=== PATIENT | male | born 1970 | race Caucasian/White ===

== ENCOUNTER 2016-04-23 15:38 | Emergency (ER) | payer OTHER ==
[2016-04-23 15:45] VITALS: BP 145/90; PULSE 68; TEMP 97.9; BMI 27.3
[2016-04-23] MEDS ORDERED: KETOROLAC TROMETHAMINE 60 MG/2 ML VIAL IM ONE (16:40)
[2016-04-23] MEDS ORDERED: diazePAM 5 MG TABLET PO ONE (16:40)
[2016-04-23] MEDS ORDERED: diazePAM 5 MG TABLET ONE (16:43)
[2016-04-23] MEDS ORDERED: KETOROLAC TROMETHAMINE 60 MG/2 ML VIAL ONE (16:43)
--- NOTE | 2016-04-23 16:47 | PDOC ---
History of Present Illness - General Chief Complaint: Back Pain Stated Complaint: LOWER BACK PAIN, LT LEG NUMBNESS Time Seen by Provider: 04/23/16 16:22 History Source: Patient Exam Limitations: No Limitations - History of Present Illness Initial Comments: 04/23/16 16:45 Chief complaint: Left-sided lower back pain with tingling of the left leg since yesterday History of present illness: Patient is a 46-year-old male with a history of hypertension and 2 previous episodes of lower back pain here today due to sudden onset of back pain after he jumped off a pull-up bar yesterday at the gym. Patient reports that he felt pain immediately and was unable to stand up or rectally. Patient reports that the pain does not radiate down his left leg but he feels tingling down his left leg to his foot. Patient reports that he went to see an wallpaper hanger that he had seen in the past when he had back pain yesterday however it did not help. Patient reports that he applied heat to his left lower back and when he turned last night in bed felt worse back pain and left sided lumbar area. Patient currently is unable to stand up or rectally is leaning towards the left. Patient denies any incontinency or any saddle anesthesia. Occurred: reports: yesterday (left lower back pain ) Severity: reports: severe (left lower back pain ) Pain Location: reports: back (left lower back paim ) Method of Injury: Yes: other (jump off pull up bar yesterday ) Modifying Factors: improves with: None Loss of Consciousness: no loss of consciousness Associated Symptoms (Fall): muscle spasms (left lower back and tingling of left leg ), trouble walking, other (difficulty standing up straight at waist ) Past History - Past Medical History Allergies/Adverse Reactions: Allergies Allergy/AdvReac Type Severity Reaction Status Date / Time No Known Allergies Allergy Verified 04/23/16 15:45 Home Medications: Ambulatory Orders Cyclobenzaprine HCl [Flexeril -] 10 mg PO Q8H PRN #21 tablet 04/23/16 Diazepam [Valium] 5 mg PO Q8H PRN #2 tablet MDD 2 04/23/16 HTN: Yes - Psycho/Social/Smoking Cessation Hx Suicidal Ideation: No Smoking History: Never smoked Information on smoking cessation initiated: No Hx Alcohol Use: No Drug/Substance Use Hx: No Substance Use Type: None Review of Systems - Review of Systems Able to Perform ROS?: Yes Constitutional: No: Symptoms Reported HEENTM: No: Symptoms Reported Respiratory: No: Symptoms reported Cardiac (ROS): No: Symptoms Reported ABD/GI: No: Symptoms Reported : No: Symptoms Reported Musculoskeletal: Yes: Back Pain (left sided lower back pain with muscle spasm ) Integumentary: No: Symptoms Reported Neurological: Yes: Tingling (left leg to foot ) *Physical Exam - Vital Signs Last Vital Signs Temp Pulse Resp BP Pulse Ox 97.9 F 68 18 145/90 98 04/23/16 15:43 04/23/16 15:43 04/23/16 15:43 04/23/16 15:43 04/23/16 15:43 - Physical Exam General Appearance: Yes: Appropriately Dressed Respiratory/Chest: positive: Lungs Clear, Normal Breath Sounds. negative: Chest Tender, Respiratory Distress Cardiovascular: positive: Regular Rhythm, Regular Rate, S1, S2 Vascular Pulses: Doralis-Pedis (L): 4+ Musculoskeletal: positive: Normal Inspection, Decreased Range of Motion (at waist ), Muscle Spasm (left side paraspinal muscle lumbar ), Other (unable to stand up erectly at waist leaning towards left ). negative: CVA Tenderness, CVA Tenderness (R), CVA Tenderness (L), Vertebral Tenderness Neurologic: positive: Normal Response, Motor Strength 5/5 (after taking valium lower ), Respond to painful stimul (left leg), Other (unable to lie down due to pain ). negative: Numbness, Sensory Deficit Medical Decision Making - Medical Decision Making 04/23/16 16:47 Patient is a 46-year-old male with a history of hypertension and 2 previous episodes of lower back pain here today due to sudden onset of back pain after he jumped off a pull-up bar yesterday at the gym. Patient reports that he felt pain immediately and was unable to stand up or rectally. Patient reports that the pain does not radiate down his left leg but he feels tingling down his left leg to his foot. Patient reports that he went to see an wallpaper hanger that he had seen in the past when he had back pain yesterday however it did not help. Patient reports that he applied heat to his left lower back and when he turned last night in bed felt worse back pain and left sided lumbar area. Patient currently is unable to stand up or rectally is leaning towards the left. Patient denies any incontinency or any saddle anesthesia. Left Sided lower back pain with muscle spasm and paresthesias of left leg to foot PLAN: Toradol 60 mg IM now Valium 5 mg by mouth now 04/23/16 18:07 better is standing up or erectly still slightly tilted towards left will discharge on valium 5 mg every 8 hours for muscle spasm # 2 tabs after this is finished flexeril 10 mg every 8 hrs prn muscle spasm# 21 tabs take Naprosyn 500 mg twice a day as needed for pain has at home follow up with ortho *DC/Admit/Observation/Transfer Diagnosis at time of Disposition: Spasm of back muscles Low back strain Qualifiers: Encounter type: initial encounter Qualified Code(s): S39.012A - Strain of muscle, fascia and tendon of lower back, initial encounter - Discharge Dispostion Disposition: HOME Condition at time of disposition: Stable - Referrals Referrals: Jose Eduardo Tracy MD [Primary Care Provider] - Zheng Rivera MD [Staff Physician] - - Patient Instructions Additional Instructions: Avoid any strenuous activities or exercise Follow up with orthopedist as soon as possible for further evaluation Return to emergency room if pain worsens or any numbness of legs or groin or worsening pain or any incontinency Take Naprosyn as directed by electronic development technician for pain start cyclobenzapine day after finishing valium if you have muscle spasm Patient voiced understanding of discharge instructions and all questions were answered
== END 2016-04-23 18:18 | disposition home or self-care (01) ==
LOC: JERFT 15:38
PROC: 3E0233Z Introduction of Anti-inflammatory into Muscle, Percutaneous Approach (ICD-10-PCS; principal; 2016-04-23)
DX: S39.012A Strain of muscle, fascia and tendon of lower back, initial encounter (principal); X58.XXXA Exposure to other specified factors, initial encounter; Y93.89 Activity, other specified; Y92.39 Other specified sports and athletic area as the place of occurrence of the external cause; M62.830 Muscle spasm of back; I10 Essential (primary) hypertension
CPT/HCPCS: 99281-25

== ENCOUNTER 2020-02-05 09:44 | Emergency (ER) | payer BC, OTHER ==
[2020-02-05 09:50] VITALS: TEMP 99; BMI 29.6
[2020-02-05] MEDS ORDERED: ONDANSETRON 4 MG/2 ML VIAL IVPUSH ONE (10:06)
[2020-02-05] MEDS ORDERED: SODIUM CHLORIDE 0.9% 500 ML INFUS.BAG IV ONE (10:06)
[2020-02-05] MEDS ORDERED: KETOROLAC TROMETHAMINE 15 MG/ML VIAL IVPUSH ONE (10:06)
[2020-02-05] MEDS ORDERED: ONDANSETRON 4 MG/2 ML VIAL ONE (10:15)
[2020-02-05] MEDS ORDERED: KETOROLAC TROMETHAMINE 15 MG/ML VIAL ONE (10:15)
[2020-02-05 10:35] LABS: AMORP PHOS 3+ /hpf (NONE SEEN); EPITHELIAL CELLS FEW /hpf
[2020-02-05 10:45] LABS: BASO % 0.5 % (0-2.0); HEMATOCRIT 44.2 % (35.4-49); HEMOGLOBIN 14.8 GM/dl (11.7-16.9); LYMPH % 5.6 % (8-40); MCH 31.6 pg (25.7-33.7); MCHC 33.5 g/dl (32.0-35.9); MEAN CELL VOLUME 94.5 fl (80-96); MEAN PLT VOLUME 9.4 fl (7.5-11.1); MONO % 6.1 % (3.8-10.2); NEUT % 87.8 % (42.8-82.8); PLATELET COUNT 261 K/MM3 (134-434); RBC 4.68 M/mm3 (4.00-5.60); RDW 12.6 % (11.9-15.9); WHITE BLOOD COUNT 13.8 K/mm3 (4.0-10.8)
[2020-02-05 10:59] LABS: ALBUMIN 4.4 g/dl (3.4-5.0); BILIRUBIN,TOTAL 1.2 mg/dl (0.2-1); CALCIUM 8.4 mg/dl (8.5-10); CREATININE 1.4 mg/dl (0.55-1.3); POTASSIUM 3.6 mmol/L (3.5-5.1); TOT PROT 7.1 g/dl (6.4-8.2)
[2020-02-05] MEDS ORDERED: morphine CARPU-JECT 4 MG/1 ML DISP.SYRIN IVPUSH ONE (11:30)
[2020-02-05] MEDS ORDERED: METOCLOPRAMIDE HCL INJECTION 10 MG/2 ML VIAL IVPUSH ONE (11:30)
[2020-02-05] MEDS ORDERED: METOCLOPRAMIDE HCL INJECTION 10 MG/2 ML VIAL ONE (11:36)
[2020-02-05] MEDS ORDERED: morphine SULFATE 4 MG/ML VIAL ONE (11:36)
[2020-02-05 12:17] VITALS: BP 140/86; PULSE 64
== END 2020-02-05 12:30 | disposition home or self-care (01) ==
LOC: FER 09:44
PROC: 3E0333Z Introduction of Anti-inflammatory into Peripheral Vein, Percutaneous Approach (ICD-10-PCS; principal; 2020-02-05)
PROC: 3E033GC Introduction of Other Therapeutic Substance into Peripheral Vein, Percutaneous Approach (ICD-10-PCS; 2020-02-05)
PROC: 3E033NZ Introduction of Analgesics, Hypnotics, Sedatives into Peripheral Vein, Percutaneous Approach (ICD-10-PCS; 2020-02-05)
PROC: 3E033GC Introduction of Other Therapeutic Substance into Peripheral Vein, Percutaneous Approach (ICD-10-PCS; 2020-02-05)
DX: N20.1 Calculus of ureter (principal)
CPT/HCPCS: 36415; 74176-TC; 80053; 81003; 81015; 85025; 87086; 99284-25

== ENCOUNTER 2022-11-12 09:12 | Day surgery (SDC) | payer BC ==
[2022-11-05 13:56] VITALS: BMI 28.1
[2022-11-12 10:40] VITALS: RESP 18; TEMP 97.4
[2022-11-12 10:53] VITALS: BP 112/74; PULSE 64
== END 2022-11-12 11:00 | disposition home or self-care (01) ==
LOC: FASU-ENDO 09:12
PROVIDERS: ATTEND Internal Medicine Gastroenterology
PROC: 0DJD8ZZ Inspection of Lower Intestinal Tract, Via Natural or Artificial Opening Endoscopic (ICD-10-PCS; principal; 2022-11-12 10:18)
DX: Z12.11 Encounter for screening for malignant neoplasm of colon (principal); K64.1 Second degree hemorrhoids